=== PATIENT | male | born 1935 | race Caucasian/White ===

== ENCOUNTER 2016-09-17 21:54 | Emergency (ER) | payer MEDICARE, BC ==
[2016-09-18] MEDS ORDERED: METHYLPRED SOD SUCC 125 MG/2 ML VIAL ONE (01:29)
[2016-09-18] MEDS ORDERED: CEFTRIAXONE 1 GM VIAL ONE (01:29)
[2016-09-18] MEDS ORDERED: SODIUM CHLORIDE 0.9% 100 ML IV ONE (01:30)
[2016-09-18] MEDS ORDERED: DUONEB INH ONE (01:33)
[2016-09-18] MEDS ORDERED: DILAUDID 1 MG/ML AMP ONE (02:03)
== END 2016-09-18 02:45 | disposition home or self-care (01) ==
LOC: ER 21:54
DX: J44.1 Chronic obstructive pulmonary disease with (acute) exacerbation (principal); J15.9 Unspecified bacterial pneumonia; J45.909 Unspecified asthma, uncomplicated; I10 Essential (primary) hypertension; I48.91 Unspecified atrial fibrillation; N19 Unspecified kidney failure; Z79.51 Long term (current) use of inhaled steroids; F17.200 Nicotine dependence, unspecified, uncomplicated
CPT/HCPCS: 36415; 71010; 80053; 82553; 83880; 84484; 85025; 93005; 94640; 96365; 96375; 99284; J0696; J1170; J2930